=== PATIENT | female | born 1975 | race Caucasian/White ===

== ENCOUNTER 2017-12-30 19:21 | Emergency (ER) | payer SELFPAY ==
--- NOTE | 2017-12-30 19:37 | EDPHY ---
H & P Time Seen by Provider: 12/30/17 19:28 HPI/ROS: Chief complaint. Abdominal pain, vomiting HPI. 42-year-old female presents emergency department with abdominal pain and vomiting. Her pain began yesterday morning upon awakening. Right lower quadrant. She then began vomiting. The pain is now more generalized. She feels slightly bloated. Pain is described as sharp but there is no radiation to her back. No diarrhea and she notes normal bowel movements. She says she has vomited about 7 times today. Unable to keep fluids down. No significant medical history of abdominal problems. She has had a hysterectomy. No fever. No chest discomfort or trouble breathing ROS Constitutional. no fever/chills, no weakness Eyes. no problems with vision ENT. no sore throat, no nasal drainage Cardiovascular. no chest pain Respiratory. no shortness of breath, no cough Abdominal. Abdominal pain with nausea vomiting . no problems urinating MS. no calf pain/swelling, no neck/back pain, no joint pain Skin. no rash Lymph. no swollen glands Neuro. no headache, no dizziness, no difficulty walking or with speech Past Medical/Surgical History: Spinal cord stimulator, hysterectomy, sinus surgery Social History: Single, nonsmoker, no alcohol Smoking Status: Never smoked Physical Exam: General Appearance: Alert well-developed female moderate distress vital signs are stable Eyes: Pupils equal and round no pallor or injection. ENT, Mouth: Mucous membranes are moist. Respiratory: There are no retractions, lungs are clear to auscultation. Cardiovascular: Regular rate and rhythm. Gastrointestinal: Abdomen is soft and tender in the right lower quadrant. Generalized tenderness as well. No masses. Normal bowel sounds Neurological: Awake and alert, sensory and motor exams grossly normal. Skin: Warm and dry, no rashes. Musculoskeletal: Neck is supple nontender. Extremities symmetrical, full range of motion. Psychiatric: Patient is oriented X 3, there is no agitation. Constitutional: Initial Vital Signs Temperature (C) 37.6 C 12/30/17 19:23 Heart Rate 83 12/30/17 19:23 Respiratory Rate 16 12/30/17 19:23 Blood Pressure 128/77 H 12/30/17 19:23 O2 Sat (%) 95 12/30/17 19:23 O2 Delivery Mode Room Air Allergies/Adverse Reactions: iodine Allergy (Verified 12/30/17 19:27) tramadol Allergy (Verified 12/30/17 19:27) Home Medications: Medication Instructions Recorded Lexapro 12/30/17 Medical Decision Making - Diagnostics Imaging Results: Imaging Impressions Abdomen Ultrasound 12/30/17 19:48 Impression: Essentially negative limited right lower quadrant ultrasound, specifically, there are no secondary findings to support a clinical diagnosis of acute appendicitis. Results called and discussed with PAMELLA WELCH M.D. on 12/30/2017 at 21:[address] 12/30/17 21:06 Impression: 1. No findings to support a clinical diagnosis of acute appendicitis.. 2. Query constipation. 3. Suspect hepatic steatosis. 4. See above report for additional findings. Results called and discussed with PAMELLA WELCH M.D. on 12/30/2017 at 22:31 CT abdomen pelvis reviewed by me and discussed with Dr. Swartz is consistent with constipation Ultrasound revealed no evidence of inflammatory process but the appendix was not seen Procedures: IV normal saline with initial target of 1 L. Zofran and fentanyl. Patient is iodine allergies and it makes her tongue swell. Prior to CT she is pre treated with Benadryl and Solu-Medrol. No allergic reaction to the IV contrast ED Course/Re-evaluation: Re-evaluation at 8:50 p.m.. Patient is stable. She continues to have some abdominal discomfort and she says nauseated but there has been no vomiting. We are awaiting imaging results. Re-evaluation again 9:05 p.m.. She and I discussed the imaging study and that we were not able to see appendix. She and I discussed CT scan. She agrees Re-evaluation 10:40 p.m.--patient is stable. She and I discussed lab a imaging study results. We discussed treatment plan including criteria for return importance of follow-up and further evaluation. She expresses understanding and agreement Differential Diagnosis: I considered appendicitis, gastroenteritis, diverticulitis. Evaluation is consistent with constipation - Data Points Laboratory Results: Laboratory Results 12/30/17 20:24 12/30/17 20:24 12/30/17 12/30/17 12/30/17 20:24 20:24 20:24 WBC 6.63 10^3/uL 10^3/uL (3.80-9.50) RBC 4.17 10^6/uL L 10^6/uL (4.18-5.33) Hgb 13.2 g/dL g/dL (12.6-16.3) Hct 38.2 % % (38.0-47.0) MCV 91.6 fL fL (81.5-99.8) MCH 31.7 pg pg (27.9-34.1) MCHC 34.6 g/dL g/dL (32.4-36.7) RDW 12.9 % % (11.5-15.2) Plt Count 356 10^3/uL 10^3/uL (150-400) MPV 8.6 fL L fL (8.7-11.7) Neut % (Auto) 52.7 % % (39.3-74.2) Lymph % (Auto) 36.2 % % (15.0-45.0) [place] % (Auto) 7.1 % % (4.5-13.0) Eos % (Auto) 2.9 % % (0.6-7.6) Baso % (Auto) 0.9 % % (0.3-1.7) Nucleat RBC Rel Count 0.0 % % (0.0-0.2) Absolute Neuts (auto) 3.50 10^3/uL 10^3/uL (1.70-6.50) Absolute Lymphs (auto) 2.40 10^3/uL 10^3/uL (1.00-3.00) Absolute Monos (auto) 0.47 10^3/uL 10^3/uL (0.30-0.80) Absolute Eos (auto) 0.19 10^3/uL 10^3/uL (0.03-0.40) Absolute Basos (auto) 0.06 10^3/uL 10^3/uL (0.02-0.10) Absolute Nucleated RBC 0.00 10^3/uL 10^3/uL (0-0.01) Immature Gran % 0.2 % % (0.0-1.1) Immature Gran # 0.01 10^3/uL 10^3/uL (0.00-0.10) Sodium 144 mEq/L mEq/L (135-145) Potassium 4.1 mEq/L mEq/L (3.5-5.2) Chloride 104 mEq/L mEq/L (97-110) Carbon Dioxide 22 mEq/l mEq/l (22-31) Anion Gap 18 mEq/L H mEq/L (8-16) BUN 15 mg/dL mg/dL (7-23) Creatinine 0.7 mg/dL mg/dL (0.6-1.0) Estimated GFR > 60 Glucose 84 mg/dL mg/dL (70-100) Calcium 10.0 mg/dL mg/dL (8.5-10.4) Lipase 183 IU/L IU/L (23-300) Beta HCG, Qual NEGATIVE Urine Color Urine Appearance Urine pH Ur Specific [place] Urine Protein Urine Ketones Urine Blood Urine Nitrate Urine Bilirubin Urine Urobilinogen Ur Leukocyte Esterase Urine RBC Urine WBC Ur Epithelial Cells Urine Mucus Urine Glucose 12/30/17 19:55 WBC RBC Hgb Hct MCV MCH MCHC RDW Plt Count MPV Neut % (Auto) Lymph % (Auto) [place] % (Auto) Eos % (Auto) Baso % (Auto) Nucleat RBC Rel Count Absolute Neuts (auto) Absolute Lymphs (auto) Absolute Monos (auto) Absolute Eos (auto) Absolute Basos (auto) Absolute Nucleated RBC Immature Gran % Immature Gran # Sodium Potassium Chloride Carbon Dioxide Anion Gap BUN Creatinine Estimated GFR Glucose Calcium Lipase Beta HCG, Qual Urine Color YELLOW Urine Appearance HAZY Urine pH 5.0 (5.0-7.5) Ur Specific [place] 1.024 (1.002-1.030) Urine Protein NEGATIVE (NEGATIVE) Urine Ketones NEGATIVE (NEGATIVE) Urine Blood 1+ H (NEGATIVE) Urine Nitrate NEGATIVE (NEGATIVE) Urine Bilirubin NEGATIVE (NEGATIVE) Urine Urobilinogen NEGATIVE EU EU (0.2-1.0) Ur Leukocyte Esterase TRACE H (NEGATIVE) Urine RBC 3-5 /hpf H /hpf (0-3) Urine WBC 1-3 /hpf /hpf (0-3) Ur Epithelial Cells 2+ /lpf H /lpf (NONE-1+) Urine Mucus TRACE /lpf /lpf (NONE-1+) Urine Glucose NEGATIVE (NEGATIVE) Medications Given: Discontinued Medications Diphenhydramine HCl (Benadryl Injection) 25 mg IVP EDNOW ONE Stop: 12/30/17 21:21 Last Admin: 12/30/17 21:25 Dose: 25 mg Fentanyl (Sublimaze) 50 mcg IVP EDNOW ONE Stop: 12/30/17 19:48 Last Admin: 12/30/17 20:23 Dose: 50 mcg Fentanyl (Sublimaze) 50 mcg IVP EDNOW ONE Stop: 12/30/17 21:13 Last Admin: 12/30/17 21:16 Dose: 50 mcg Sodium Chloride (Ns) 1,000 mls @ 0 mls/hr IV EDNOW ONE; Wide Open PRN Reason: Protocol Stop: 12/30/17 19:48 Last Admin: 12/30/17 20:22 Dose: 1,000 mls Methylprednisolone Sodium Succinate (Solu-Medrol) 125 mg IVP EDNOW ONE Stop: 12/30/17 21:21 Last Admin: 12/30/17 21:25 Dose: 125 mg Promethazine HCl (Phenergan) 12.5 mg IVP EDNOW ONE Stop: 12/30/17 19:49 Last Admin: 12/30/17 20:25 Dose: 12.5 mg Promethazine HCl (Phenergan) 12.5 mg IVP EDNOW ONE Stop: 12/30/17 21:14 Last Admin: 12/30/17 21:17 Dose: 12.5 mg Departure - Departure Disposition: Home, Routine, Self-Care Clinical Impression: Abdominal pain Qualifiers: Abdominal location: generalized Qualified Code(s): R10.84 - Generalized abdominal pain Condition: Good Instructions: Constipation (ED) Additional Instructions: Increased fluids including fruit and prune juice. Drink whole bottle of magnesium citrate tonight. Return for worsening pain, fever, vomiting. Recheck in 1 day if not improved Referrals: [facility] [Other] - 1 day, if not improved
[2017-12-30] MEDS ORDERED: NS 1,000 ML IV ONE (19:47)
[2017-12-30] MEDS ORDERED: fentaNYL 100 MCG/2 ML INJ IVP ONE ×2 (19:47→21:12)
[2017-12-30] MEDS ORDERED: PROMETHAZINE HCL 25 MG/ML INJ IVP ONE ×2 (19:48→21:13)
[2017-12-30 20:35] LABS: PLATELET COUNT 356 10^3/uL (150-400)
[2017-12-30] MEDS ORDERED: fentaNYL 100 MCG/2 ML INJ ONE (21:13)
[2017-12-30] MEDS ORDERED: methylPREDNISolone SOD SUCC 125 MG/2 ML VIAL IVP ONE (21:20)
[2017-12-30] MEDS ORDERED: IOPAMIDOL (ISOVUE-300) 100 ML BTL ONE (21:22)
[2017-12-30] MEDS ORDERED: MAGNESIUM CITRATE 300 ML BOTTLE PO ONE (22:48)
[2017-12-30 23:04] VITALS: BP 113/70
== END 2017-12-30 23:10 | disposition home or self-care (01) ==
DX: R10.84 Generalized abdominal pain (principal); E86.9 Volume depletion, unspecified; Z90.710 Acquired absence of both cervix and uterus
CPT/HCPCS: 96374; J1200; J2550; J2930; J3010; Q9967

== ENCOUNTER 2017-12-31 15:17 | Emergency (ER) | payer SELFPAY ==
[2017-12-31 15:21] VITALS: BP 121/83
--- NOTE | 2017-12-31 15:59 | EDPHY ---
H & P Stated Complaint: Here yesterday;w/u neg except for constipation;+BM after mag cit Time Seen by Provider: 12/31/17 15:57 HPI/ROS: HPI: This is a 42-year-old female who presents with Chief Complaint: Here yesterday;w/u neg except for constipation;+BM after mag cit Location: Periumbilical Quality: Cramping, sharp pain Duration: 2-3 days Signs and Symptoms: no fever, + nausea, no vomiting, no hematemesis, no blood in stool, + abdominal bloating, no diarrhea, no back pain, no urinary symptoms, no vaginal bleeding/discharge, no indigestion, no chest pain, no shortness of breath Timing: Acute Severity: 10 out 10 Context: Patient reports that she has a History hysterectomy, spinal cord stimulator re-presented to the emergency room with complaints of continued periumbilical, sharp, cramping, radiating into her back pain. She presented yesterday with 1-2 day history of similar pain. She had complete workup including normal laboratory findings CT abdomen and pelvis scan, abdominal ultrasound, urinalysis. Patient was given multiple rounds of fentanyl with relief of pain and she is asking for the same medication at this time. She went home and drank a whole bottle of magnesium citrate. She reports that she had 3-4 bowel movements but no relief of the pain. She continues with nausea but no vomiting. Denies fever. Reports that she took Zofran today but has not helped her nausea. Modifying Factors: See above Comment: ROS: see HPI Constitutional: No fever, no chills, no weight loss Eyes: No blurred vision Respiratory: No shortness of breath, no cough Cardiovascular: No chest pain, no palpitations Gastrointestinal: + nausea, no vomiting, no diarrhea, no hematemesis, no blood in stool Genitourinary: No dysuria, no blood in urine Extremities: No myalgias, no edema Neurologic: No weakness, no numbness Skin: No rashes, no petechiae Hematologic: No bruising, no bleeding MEDICAL/SURGICAL/SOCIAL HISTORY: Medical history: Depression. Surgical history: Hysterectomy, sinus surgery, spinal cord stimulator Social history: Family history noncontributory. CONSTITUTIONAL: Extremely well-appearing middle-aged white female, awake and alert, no obvious distress HEENT: Atraumatic and normocephalic, PERRL, EOMI. Nares patent; no rhinorrhea; no nasal mucosal edema. Tympanic membranes clear. Oropharynx clear, no exudate and moist pink mucosa. Airway patent. No lymphadenopathy. No meningismus. Cardiovascular: Normal S1/S2, regular rate, regular rhythm, without murmur rub or gallop. PULMONARY/CHEST: Symmetrical and nontender. Clear to auscultation bilaterally. Good air movement. No accessory muscle usage. ABDOMEN: Soft, nondistended, moderately generalized tenderness; no rebound, + guarding, no peritoneal signs, no masses or organomegaly. No CVAT. EXTREMITIES: 2/2 pulses, strength 5/5, no deformities, no clubbing, no cyanosis or edema. NEUROLOGICAL: no focal neuro deficits. GCS 15. SKIN: Warm and dry, no erythema. no rash. Good capillary refill. Source: Patient Exam Limitations: No limitations - Personal History LMP (Females 10-55): Hysterectomy Current Tetanus Diphtheria and Acellular Pertussis (TDAP): Yes - Medical/Surgical History Hx Asthma: No Hx Chronic Respiratory Disease: No Hx Diabetes: No Hx Cardiac Disease: No Hx Renal Disease: No Hx Cirrhosis: No Hx Alcoholism: No Hx HIV/AIDS: No Hx Splenectomy or Spleen Trauma: No Other PMH: hysterectomy, sinus surgery, spinal cord stimulator - Social History Smoking Status: Never smoked Constitutional: Initial Vital Signs Temperature (C) 37.3 C 12/31/17 15:19 Heart Rate 81 12/31/17 15:19 Respiratory Rate 18 12/31/17 15:19 Blood Pressure 121/83 H 12/31/17 15:19 O2 Sat (%) 97 12/31/17 15:19 O2 Delivery Mode Room Air Allergies/Adverse Reactions: iodine Allergy (Verified 12/31/17 15:18) tramadol Allergy (Verified 12/31/17 15:18) Home Medications: Medication Instructions Recorded Lexapro 12/30/17 Medical Decision Making ED Course/Re-evaluation: Labs, IV fluids, IV and nasal medication, acute abdomen series Vital signs reviewed and stable. no Systemic signs. 1615: Given 2 L normal saline, IV promethazine, lidocaine infusion, nasal ketamine 1620: Notified by nursing that patient is wishing to talk to me. Patient reports that she is refusing nasal ketamine. She is open to IV fluids, lidocaine infusion, IV promethazine but if I am not going to give her narcotic she wants to leave against medical advice. 1630: She reports that she just received a phone call that her son was in [facility] and has been in a car accident. Vital signs at discharge stable. This patient was seen under the supervision of my secondary supervising physician. I evaluated care for this patient independently. Discussed this patient with Dr. Lawrence who did not see the patient. Differential Diagnosis: Abdominal pain including but not limited to appendicitis, cholecystitis, constipation, gastritis and urinary tract infection. Departure - Departure Disposition: Against Medical Advice Clinical Impression: Generalized abdominal pain of unknown etiology Constipation Qualifiers: Constipation type: other constipation type Qualified Code(s): K59.09 - Other constipation Condition: Good Instructions: Constipation (ED), Acute Abdominal Pain (ED) Additional Instructions: Consume a minimum of 8-10 glasses of water or electrolyte fluid replacement drinks that include Gatorade, Powerade, Pedialyte. Eat a bland diet for the next 48 hours and then slowly advance as tolerated. By leaving against medical advise you have verbalized complete understanding and acceptance of the risks associated with doing so, including, but not limited to, , chronic & permanent disability and impairment, and other circumstances and consequences too numerous to mention herein. Return to the ER immediately if you experience new, continued or worsening abdominal pain, fevers/chills, inability to tolerate oral intake, new pain, or any other symptoms that concern you. Referrals: [facility],. [Clinic] - 5-7 days, if not improved
[2017-12-31] MEDS ORDERED: NS 1,000 ML IV ONE ×2 (16:07)
[2017-12-31] MEDS ORDERED: LIDOCAINE 1% 80 MG in NS 100 ML IV ONE (16:08)
[2017-12-31] MEDS ORDERED: KETAMINE 500 MG/10 ML VIAL NASAL ONE (16:08)
[2017-12-31] MEDS ORDERED: PROMETHAZINE HCL 25 MG/ML INJ IVP ONE (16:09)
== END 2017-12-31 16:35 | disposition left against medical advice (07) ==
DX: K59.09 Other constipation (principal); Z90.710 Acquired absence of both cervix and uterus
CPT/HCPCS: J2550

== ENCOUNTER 2018-10-23 14:35 | Emergency (ER) | payer MEDICAID ==
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
[2018-10-23] MEDS ORDERED: NS 1,000 ML IV ONE (15:18)
[2018-10-23] MEDS ORDERED: fentaNYL 100 MCG/2 ML INJ IVP ONE (15:18)
[2018-10-23] MEDS ORDERED: ONDANSETRON 4 MG/2 ML VIAL IVP ONE (15:18)
[2018-10-23 16:34] LABS: PLATELET COUNT 437 10^3/uL (150-400)
[2018-10-23] MEDS ORDERED: PROMETHAZINE HCL 25 MG/ML INJ IVP PRN (17:01)
[2018-10-23] MEDS ORDERED: HYDROmorphONE/DILAUDID 2 MG/ML INJ IVP ONE (17:01)
[2018-10-23] MEDS ORDERED: IOHEXOL 300 mgI/ML (OMNIPAQUE) 150 ML BTL IV ONE (17:01)
[2018-10-23] MEDS ORDERED: DIAZEPAM 5 MG PREPACK#4 BTL TAKEHOME ONE (19:11)
[2018-10-23] MEDS ORDERED: OXYCODONE/APAP 5/325MG PREPACK#4 BTL TAKEHOME ONE (19:11)
[2018-10-23 19:48] VITALS: BP 113/75
== END 2018-10-23 19:48 | disposition home or self-care (01) ==
DX: S16.1XXA Strain of muscle, fascia and tendon at neck level, initial encounter (principal); V49.3XXA Car occupant (driver) (passenger) injured in unspecified nontraffic accident, initial encounter; Y92.9 Unspecified place or not applicable; Y93.9 Activity, unspecified; Y99.9 Unspecified external cause status
CPT/HCPCS: 82435-PO; 82565-PO; 82947-PO; 84132-PO; 84295-PO; 84520-PO; 85014-ER; 96374; J1170; J1200; J2405; J2550; J3010; Q9967